=== PATIENT | male | born 1965 | race Caucasian/White ===

== ENCOUNTER 2016-05-21 16:51 | Observation (INO) | payer OTHER ==
[~2016-05-21] VITALS: Ht 167.6 cm; Wt 109.0 kg
[2016-05-21 17:07] VITALS: BP 157/87; PULSE 76; RESP 20; TEMP 98.1; O2SAT 98
--- NOTE | 2016-05-21 17:09 | PD ---
HPI Chief Complaint: Chest Pain Time Seen by Provider: 17:09 Travel History International Travel<30 days: No Contact w/Intl Traveler<30days: No Traveled to known affect area: No History of Present Illness HPI 51-year-old male with history of hypertension and gout presents to emergency department for evaluation of the chest pain that began while eating lunch shape. He states it then began to radiate to his left neck and shoulders and down his left arm. He states it felt numb and tingling. States that incision made it awkward to use the left upper extremity. States the pain lasted "for quite some time" and then when they returned back to where they're staying, his friend contacted [facility] ambulance. The fire department arrived. The patient took an aspirin prior to arrival. He is not given a sublingual her aspirin from the paramedics. Patient states at this time he is pain-free. He states his sensation in his arm is still mildly fair but improving. Denies any associated shortness of breath. No diaphoresis. No nausea or vomiting. No recent illnesses, fever, chills. No other symptoms to report. PFSH Past Medical History Hypertension: Yes Social History Alcohol Use: No Tobacco Use: Yes Allergies-Medications (Allergen,Severity, Reaction): Coded Allergies: No Known Allergies (Unverified , 05/21/16) Reported Meds & Prescriptions Reported Meds & Active Scripts Active Reported Lisinopril 5 Mg Tab 5 Mg PO DAILY Review of Systems Except as stated in HPI: all other systems reviewed are Neg Physical Exam Narrative GENERAL: Well-nourished male patient, in no acute distress SKIN: Warm and dry. HEAD: Atraumatic. Normocephalic. EYES: Pupils equal and round. No scleral icterus. No injection or drainage. ENT: No nasal bleeding or discharge. Mucous membranes pink and moist. NECK: Trachea midline. No JVD. CARDIOVASCULAR: Regular rate and rhythm. No murmur appreciated. RESPIRATORY: No accessory muscle use. Clear to auscultation. Breath sounds equal bilaterally. GASTROINTESTINAL: Abdomen soft, non-tender, nondistended. Hepatic and splenic margins not palpable. MUSCULOSKELETAL: No obvious deformities. No clubbing. No cyanosis. No edema. NEUROLOGICAL: Awake and alert. No obvious cranial nerve deficits. Motor grossly within normal limits. Normal speech. PSYCHIATRIC: Appropriate mood and affect; insight and judgment normal. Data Data Last Documented VS Vital Signs Date Time Temp Pulse Resp B/P Pulse Ox O2 Delivery O2 Flow Rate FiO2 05/21/16 17:20 74 18 141/83 100 Nasal Cannula 2 139/82 05/21/16 17:13 98.1 Orders Electrocardiogram (05/21/16 17:09) Basic Metabolic Panel (Bmp) (05/21/16 17:09) Ckmb (Isoenzyme) Profile (05/21/16 17:09) Complete Blood Count With Diff (05/21/16 17:09) Magnesium (Mg) (05/21/16 17:09) Prothrombin Time / Inr (Pt) (05/21/16 17:09) Act Partial Throm Time (Ptt) (05/21/16 17:09) Troponin I (05/21/16 17:09) Chest, Single Ap (05/21/16 17:09) Ecg Monitoring (05/21/16 17:09) Bilateral Bp Monitoring (05/21/16 17:09) Iv Access Insert/Monitor (05/21/16 17:09) Oximetry (05/21/16 17:09) Oxygen Administration (05/21/16 17:09) Sodium Chloride 0.9% Flush (Ns Flush) (05/21/16 17:15) CKMB (05/21/16 17:25) CKMB% (05/21/16 17:25) Admit Order (Ed Use Only) (05/21/16 19:08) Activity Bed Rest With Brp (05/21/16 19:08) Vital Signs (Adult) Q4H (05/21/16 19:08) ^ Notify Parameters (05/21/16 19:08) Resp Oxygen Nasal Cannula (05/21/16 ) Diet Npo (05/22/16 Breakfast) Diet Heart Healthy (05/21/16 Dinner) Ckmb (Isoenzyme) Profile (05/21/16 20:25) Ckmb (Isoenzyme) Profile (05/21/16 23:25) Troponin I (05/21/16 20:25) Troponin I (05/21/16 23:25) ^ Obtain (05/21/16 19:08) Sodium Chloride 0.9% Flush (Ns Flush) (05/21/16 19:15) Sodium Chloride 0.9% Flush (Ns Flush) (05/21/16 21:00) Acetaminophen (Tylenol) (05/21/16 19:15) Ondansetron Inj (Zofran Inj) (05/21/16 19:15) Nitroglycerin Sl (Nitrostat Sl) (05/21/16 19:15) Dampproofer / Telemetry FAB.Q8H (05/21/16 19:08) Robles Bilateral/Knee High FAB.QSHIFT (05/21/16 19:08) Cardiac Rhythm .As Directed (05/21/16 19:08) ^ Notify Dr: Other .PRN (05/21/16 19:08) Labs Laboratory Tests Test 05/21/16 17:25 White Blood Count 8.9 TH/MM3 Red Blood Count 4.73 MIL/MM3 Hemoglobin 15.0 GM/DL Hematocrit 43.5 % Mean Corpuscular Volume 91.8 FL Mean Corpuscular Hemoglobin 31.7 PG Mean Corpuscular Hemoglobin 34.5 % Concent Red Cell Distribution Width 13.5 % Platelet Count 216 TH/MM3 Mean Platelet Volume 8.5 FL Neutrophils (%) (Auto) 67.5 % Lymphocytes (%) (Auto) 20.4 % Monocytes (%) (Auto) 9.6 % Eosinophils (%) (Auto) 1.8 % Basophils (%) (Auto) 0.7 % Neutrophils # (Auto) 6.0 TH/MM3 Lymphocytes # (Auto) 1.8 TH/MM3 Monocytes # (Auto) 0.9 TH/MM3 Eosinophils # (Auto) 0.2 TH/MM3 Basophils # (Auto) 0.1 TH/MM3 CBC Comment DIFF FINAL Differential Comment Prothrombin Time 10.8 SEC Prothromb Time International 1.0 RATIO Ratio Activated Partial 27.4 SEC Thromboplast Time Sodium Level 138 MEQ/L Potassium Level 4.1 MEQ/L Chloride Level 105 MEQ/L Carbon Dioxide Level 26.9 MEQ/L Anion Gap 6 MEQ/L Blood Urea Nitrogen 11 MG/DL Creatinine 0.85 MG/DL Estimat Glomerular Filtration 95 ML/MIN Rate Random Glucose 81 MG/DL Calcium Level 8.5 MG/DL Magnesium Level 1.9 MG/DL Total Creatine Kinase 221 U/L Creatine Kinase MB 1.6 NG/ML Troponin I LESS THAN 0.02 NG/ML MDM Medical Decision Making Medical Screen Exam Complete: Yes Emergency Medical Condition: Yes Medical Record Reviewed: Yes Differential Diagnosis ACS versus pleuritic pain versus chest wall pain versus musculoskeletal pain Narrative Course 51-year-old male presents to the emergency department for evaluation of chest pain and palpitations. Patient appears without distress. His symptoms have really completely resolved at this time. Patient is out of town and visiting for bike week. Chest x-rays without acute cardiopulmonary disease. CBC and BMP are without acute concern. Troponin is less than 0.02. EKG is normal sinus rhythm without ST elevation or depression. I have discussed the results with my attending physician who agrees the patient would benefit from chest pain center observation and further evaluation for possible cardiac etiology. I discussed this with the patient. He is in agreement with this plan of care. Diagnosis Primary Impression: Chest pain at rest Admitting Information Admitting Physician Requests: Observation Condition: Stable Lori Terrell May 21, 2016 17:09
[2016-05-21 17:13] VITALS: BP 157/87; PULSE 75; PULSE 76; RESP 20; TEMP 98.1; O2SAT 100
[2016-05-21] MEDS ORDERED: SODIUM CHLORIDE 0.9% FLUSH 5 ML FLUSH IVF PRN ×2 (17:15→19:15)
[2016-05-21 17:20] VITALS: BP_SYST 139; BP_SYST 141; BP_DIAS 82; BP_DIAS 83; PULSE 74; RESP 18; O2SAT 100
[2016-05-21 17:55] LABS: BASOPHIL # 0.1 TH/MM3 (0-0.2); BASOPHIL % 0.7 % (0.0-2.0); EOSINOPHIL # 0.2 TH/MM3 (0-0.4); EOSINOPHIL % 1.8 % (0.0-4.0); HEMATOCRIT 43.5 % (39.0-51.0); HEMO FLAGS DIFF FINAL; LYMPH % 20.4 % (9.0-44.0); LYMPHOCYTE # 1.8 TH/MM3 (1.0-4.8); MEAN CELL VOLUME 91.8 FL (80.0-100.0); MEAN CORPUSCULAR HEMOGLOBIN 31.7 PG (27.0-34.0); MEAN CORPUSCULAR HGB CONC 34.5 % (32.0-36.0); MONO % 9.6 % (0.0-8.0); NEUT % 67.5 % (16.0-70.0); PLATELET COUNT 216 TH/MM3 (150-450); RED BLOOD COUNT 4.73 MIL/MM3 (4.50-5.90); RED CELL DISTRIBUTION WIDTH 13.5 % (11.6-17.2); WHITE BLOOD COUNT 8.9 TH/MM3 (4.0-11.0)
--- NOTE | 2016-05-21 17:58 | RADRPT ---
EXAM DATE/TIME: 05/21/2016 17:29 [facility] COMPARISON: No previous studies available for comparison. INDICATIONS : Chest Pain, Short of Breath. MEDICAL HISTORY : None. SURGICAL HISTORY : None. ENCOUNTER: Initial ACUITY: 1 day PAIN SCORE: 5/10 LOCATION: Bilateral chest FINDINGS: A single view of the chest demonstrates the lungs to be symmetrically aerated without evidence of mas s, infiltrate or effusion. The cardiomediastinal contours are unremarkable. Osseous structures are intact. CONCLUSION: No acute disease. Floyd Muniz MD on May 21, 2016 at 17:56 Board Certified Radiologist. This report was verified electronically.
[2016-05-21 18:05] LABS: APTT (PATIENT) 27.4 SEC (24.3-30.1); PROTHROMBIN TIME - PATIENT 10.8 SEC (9.8-11.6)
[2016-05-21 18:09] LABS: ANION GAP 6 MEQ/L (5-15); BICARBONATE 26.9 MEQ/L (21.0-32.0); BLOOD UREA NITROGEN 11 MG/DL (7-18); CHLORIDE 105 MEQ/L (98-107); GLOMERULAR FILTRATION RATE 95 ML/MIN (>89); POTASSIUM 4.1 MEQ/L (3.5-5.1); SODIUM (NA) 138 MEQ/L (136-145)
[2016-05-21 18:13] LABS: CREATINE KINASE 221 U/L (39-308); MAGNESIUM 1.9 MG/DL (1.5-2.5)
[2016-05-21 18:26] LABS: CKMB 1.6 NG/ML (0.5-3.6)
[2016-05-21] MEDS ORDERED: NITROGLYCERIN 0.4 MG SL 25 TABS/BTL SL PRN (19:15)
[2016-05-21] MEDS ORDERED: ACETAMINOPHEN 500 MG CPLT PO PRN (19:15)
[2016-05-21] MEDS ORDERED: ONDANSETRON HCL 4 MG/2 ML VIAL IV PRN (19:15)
[2016-05-21] MEDS ORDERED: LISI-519 PO (19:55)
[2016-05-21 21:03] VITALS: O2SAT 97
[2016-05-21] MEDS ORDERED: AMLO5TAB2 PO (21:20)
[2016-05-21] MEDS ORDERED: LISI-515 PO (21:20)
[2016-05-21] MEDS: SODIUM CHLORIDE 0.9% FLUSH 5 ML FLUSH IVF SCH (21:28)
[2016-05-21 21:58] LABS: CREATINE KINASE 189 U/L (39-308)
[2016-05-21 22:09] VITALS: BP 136/95; PULSE 63; RESP 18; O2SAT 98
[2016-05-21 22:10] LABS: CKMB 1.8 NG/ML (0.5-3.6)
[2016-05-21 23:40] VITALS: BP 161/86; PULSE 63; RESP 20; TEMP 98; O2SAT 95
[2016-05-22] VITALS: PULSE 76
[2016-05-22 00:15] LABS: CREATINE KINASE 188 U/L (39-308)
[2016-05-22 03:40] VITALS: BP 162/83; PULSE 66; RESP 20; TEMP 98.2; O2SAT 97
[2016-05-22 04:00] VITALS: PULSE 66
[2016-05-22 07:20] VITALS: O2SAT 97
[2016-05-22 07:33] VITALS: BP 155/98; PULSE 68; RESP 20; TEMP 97.5; O2SAT 95
--- NOTE | 2016-05-22 08:17 | EKG ---
Date Performed: 05/21/2016 Time Performed: 17:35:12 PTAGE: 51 years EKG: Sinus rhythm NORMAL ECG NO PREVIOUS TRACING DOCTOR: Rob Salas Interpretating Date/Time 05/22/2016 08:16:30
[2016-05-22] MEDS ORDERED: amLODIPine BESYLATE 5 MG TAB PO SCH (09:00)
[2016-05-22] MEDS ORDERED: LISINOPRIL 20 MG TAB PO SCH (09:00)
[2016-05-22] MEDS: SODIUM CHLORIDE 0.9% FLUSH 5 ML FLUSH IVF SCH (09:16)
[2016-05-22] MEDS ORDERED: RESP: ALBUTEROL 2.5 MG/IPRATROPIUM 0.5 MG NEB (SCH) INH ONE (10:30)
[2016-05-22] MEDS ORDERED: RESP: ALBUTEROL 2.5 MG/IPRATROPIUM 0.5 MG NEB (PRN) INH (10:30)
[2016-05-22 10:46] VITALS: PULSE 62; PULSE 64
--- NOTE | 2016-05-22 11:07 | HHI.HP ---
HPI Primary Care Physician No Primary Care Physician Chief Complaint Chest pain History of Present Illness This is a 51-year-old male that presents to the ED via private vehicle with a complaint of discomfort that began while he was about to sit down for lunch yesterday. Was a tightness in the center of his chest and about the same time he had a weakness that radiated from his left neck down his left arm. He had no issues with his other extremities. He decided to given his motorcycle ride from [place] back to [place]. His friend noticed that he did not look so well and told to go to the hospital. The weakness in his left arm lasted a couple hours however the discomfort in his chest seemed to linger on longer. He no longer has a discomfort in his chest. He cannot recall having a prior cardiac workup. Recently diagnosed hypertension and is now 2 medications for that. States it is helped but still not normalizes blood pressure. Denies recent illnesses. Denies fevers or chills. Review of Systems General: Patient denies fevers, chills recent, and recent travel HEENT: Patient denies headache, sore throat, difficulty swallowing. Cardiovascular: Has the chest discomfort as mentioned above. Denies sensation of heart beating rapidly or irregularly. No syncope. Denies diaphoresis. Respiratory: Denies shortness of breath or inspirational chest discomfort. Denies coughing wheezing or hemoptysis. GI: Patient denies nausea, vomiting, diarrhea, abdominal pain, bloody stools. Musculoskeletal: Patient denies joint pain or edema. Denies calf pain or edema. Neurovascular: Patient when a weakness in his left arm the last a couple hours but denied weakness in any other extremity. Had a difficulty speaking. Patient denies numbness, tingling in extremities. Denies headache. Endocrine: Denies polyuria and polydipsia. Hematologic: Denies easy bruising. Skin: Denies rash or itching. Past Family Social History Allergies: Coded Allergies: No Known Allergies (Unverified , 05/21/16) Past Medical History Hypertension and tobacco abuse. Denies hyperlipidemia diabetes and CAD. Past Surgical History Noncontributory. Reported Medications Reported Meds & Active Scripts Active Reported Amlodipine (Amlodipine Besylate) 5 Mg Tab 5 Mg PO DAILY Lisinopril 20 Mg Tab 20 Mg PO DAILY Active Ordered Medications Current Medications Medications (Trade) Dose Ordered Sig/Eve Route Start Time Stop Time Status Last Admin (NS Flush) 2 ml UNSCH PRN IVF 05/21/16 17:15 (NS Flush) 2 ml UNSCH PRN IVF 05/21/16 19:15 (NS Flush) 2 ml BID IVF 05/21/16 21:00 05/22/16 09:16 (Tylenol) 500 mg Q4H PRN PO 05/21/16 19:15 (Zofran Inj) 4 mg Q6H PRN IV 05/21/16 19:15 (Nitrostat Sl) 0.4 mg Q5M PRN SL 05/21/16 19:15 (Norvasc) 5 mg DAILY PO 05/22/16 09:00 05/22/16 09:16 (Prinivil) 20 mg DAILY PO 05/22/16 09:00 05/22/16 09:15 Family History Denies family history of CAD. Social History He smokes between 2-3 pack of service daily for 30 years. Denies alcohol or illicit drugs. He works in construction. He is her medication from [place] for [employer]. Physical Exam Vital Signs Vital Signs Date Time Temp Pulse Resp B/P Pulse Ox O2 Delivery O2 Flow Rate FiO2 05/22/16 10:46 64 05/22/16 07:33 97.5 68 20 155/98 95 05/22/16 07:20 97 21 05/22/16 04:00 66 05/22/16 03:40 98.2 66 20 162/83 97 05/22/16 00:00 76 05/21/16 23:40 98.0 63 20 161/86 95 05/21/16 22:09 63 18 136/95 98 Room Air 05/21/16 21:03 97 05/21/16 17:20 74 18 141/83 100 Nasal Cannula 2 139/82 05/21/16 17:13 98.1 75 20 157/87 100 Nasal Cannula 2 05/21/16 17:13 80 20 99 Room Air 05/21/16 17:13 98.1 76 20 157/87 100 Nasal Cannula 2 05/21/16 17:13 100 Nasal Cannula 2 05/21/16 17:07 98.1 76 20 157/87 98 Physical Exam GENERAL: This is a well-nourished, well-developed patient, in no apparent distress. Patient speaks in clear complete sentences. Patient is pleasant. HEENT: Head is atraumatic and normocephalic. Neck is supple without lymphadenopathy and trachea is midline. No JVD or carotid bruits. CARDIOVASCULAR: Regular rate and rhythm without murmurs, gallops, or rubs. RESPIRATORY: Clear to auscultation. Breath sounds equal bilaterally. No wheezes , rales, or rhonchi. Chest wall is nontender. No use of accessory muscles. GASTROINTESTINAL: Abdomen is nontender, nondistended. Abdomen soft. No obvious pulsatile mass or bruit. No CVA tenderness. Strong femoral pulses bilaterally. Normal bowel sounds in all quadrants. MUSCULOSKELETAL: Patient is moving upper and lower extremities freely. No calf tenderness or edema, no Homans sign. Strong pulses in upper and lower extremities. NEUROLOGICAL: Patient is alert and oriented. Cranial nerves 2-12 are grossly intact. No focal deficits and speech is clear. There is no weakness in extremities appreciated. Strong air director strength bilaterally. SKIN: No rash and turgor is normal. Laboratory Laboratory Tests Test 05/21/16 05/21/16 05/21/16 17:25 21:20 23:05 White Blood Count 8.9 Red Blood Count 4.73 Hemoglobin 15.0 Hematocrit 43.5 Mean Corpuscular Volume 91.8 Mean Corpuscular Hemoglobin 31.7 Mean Corpuscular Hemoglobin 34.5 Concent Red Cell Distribution Width 13.5 Platelet Count 216 Mean Platelet Volume 8.5 Neutrophils (%) (Auto) 67.5 Lymphocytes (%) (Auto) 20.4 Monocytes (%) (Auto) 9.6 Eosinophils (%) (Auto) 1.8 Basophils (%) (Auto) 0.7 Neutrophils # (Auto) 6.0 Lymphocytes # (Auto) 1.8 Monocytes # (Auto) 0.9 Eosinophils # (Auto) 0.2 Basophils # (Auto) 0.1 CBC Comment DIFF FINAL Differential Comment Prothrombin Time 10.8 Prothromb Time International 1.0 Ratio Activated Partial 27.4 Thromboplast Time Sodium Level 138 Potassium Level 4.1 Chloride Level 105 Carbon Dioxide Level 26.9 Anion Gap 6 Blood Urea Nitrogen 11 Creatinine 0.85 Estimat Glomerular Filtration 95 Rate Random Glucose 81 Calcium Level 8.5 Magnesium Level 1.9 Total Creatine Kinase 221 189 188 Creatine Kinase MB 1.6 1.8 Troponin I LESS THAN 0.02 LESS THAN 0.02 LESS THAN 0.02 Result Diagram: 05/21/16 1725 05/21/16 1725 Imaging Last 24 hours Impressions Chest X-Ray 05/21/16 1709 Signed Impressions: Service Date/Time: Saturday, May 21, 2016 17:29 - CONCLUSION: No acute disease. Floyd Muniz MD Course EKGs have sinus rhythm with nonspecific inferior T-wave changes. No significant ST segment depressions or elevations. Assessment and Plan Assessment and Plan * Chest pain: Patient had serial cardiac enzymes and EKGs for ruling out purposes. He will be seen by Dr. Dominguez of cardiology and the chest pain center and will undergo a John protocol ETT. He'll likely be discharged home if the stress test were to be nonischemic. He should follow-up with his physician when returning to [place] x-ray. * Hypertension: We will increase his amlodipine to 10 mg. He should continue the lisinopril. * Tobacco abuse: Patient has been counseled on importance of smoking cessation. Patient is stable this time. He is agreeable to this plan. Bo Saenz May 22, 2016 11:07
[2016-05-22] MEDS ORDERED: AMLO10TA2 PO (11:35)
--- NOTE | 2016-05-22 11:35 | HHI.DCPOC ---
Discharge Care Plan Diagnosis: (1) Chest pain (2) Hypertension (3) Tobacco abuse Goals to Promote Your Health * To prevent worsening of your condition and complications * To maintain your health at the optimal level Directions to Meet Your Goals Take your medications as prescribed Follow your dietary instruction Follow activity as directed Keep your appointments as scheduled Take your immunizations and boosters as scheduled If your symptoms worsen call your PCP, if no PCP go to Urgent Care Center or Emergency Room Smoking is Dangerous to Your Health. Avoid second hand smoke Call the 24-hour hour crisis hotline for domestic abuse at Bo Saenz May 22, 2016 11:35
--- NOTE | 2016-05-22 12:33 | EKG ---
Date Performed: 05/21/2016 Time Performed: 23:36:24 PTAGE: 51 years EKG: Sinus rhythm NORMAL ECG No significant change from prior electrocardiogram. PREVIOUS TRACING : 05/21/2016 17.35 DOCTOR: Rob Salas Interpretating Date/Time 05/22/2016 12:32:17
--- NOTE | 2016-05-22 14:14 | TR ---
Date Performed: 05/22/2016 Time Performed: 11:05:43 DOCTOR: Renard Dominguez DRUG LIST: CLINICAL HISTORY: REASON FOR TEST: Chest pain / PALPITATIONS REASON FOR ENDING: OBSERVATION: CONCLUSION: CARLO PROTOCOL. NO CP .TEST STOPPED AFTER EXCEEDING GOAL HR SECONDARY TO SOB AND LE G FATIGUE.Maximum IL=687 % Max HR Achieved=94.0% Resting OE=838/80 Total Exercise Time=7:01 COMMENTS: Conclusion: Normal treadmill exercise. No evidence of ischemia.
== END 2016-05-22 12:13 | disposition home or self-care (01) ==
LOC: NEPE 16:51 → NEDA 19:12 → NEPHCDU 23:04
DX: R07.9 Chest pain, unspecified (principal); I10 Essential (primary) hypertension; F17.200 Nicotine dependence, unspecified, uncomplicated; M10.9 Gout, unspecified
CPT/HCPCS: 71010; 80048; 82550; 82552; 83735; 84484; 85025; 85610; 85730; 93005; 93017; 94664; 99285; G0378